=== PATIENT | female | born 1995 | race Caucasian/White ===

== ENCOUNTER 2016-10-08 22:36 | Emergency (ER) | payer SELFPAY ==
[~2016-10-08] VITALS: Ht 160 cm; Wt 52.0 kg
[2016-10-08 22:38] VITALS: BP 140/82; PULSE 97; RESP 16; TEMP 98; O2SAT 100
[2016-10-08] MEDS ORDERED: LORazepam 2 MG TAB PO ONE (23:00)
--- NOTE | 2016-10-08 23:02 | PD ---
HPI . Burning sensation in her throat Chief Complaint: Respiratory Distress Time Seen by Provider: 22:57 Travel History International Travel<30 days: No Contact w/Intl Traveler<30days: No Traveled to known affect area: No History of Present Illness HPI Patient presents saying that she's been having a burning sensation in her throat is weak. She states that it is due to cigarette smoke. She states that she has had this happen before. She states that she had medicine to take for this when she was younger. It sounds like she probably had asthma or reactive airway disease as a child. She states that cigarette smoke causes her throat burn and then she feels like her throat is closing up. PFSH Past Medical History ADHD: Yes Anxiety: Yes Influenza Vaccination: No ?: Not LMP: 10/03/16 Past Surgical History Surgical History: No Previous Surgery Social History Alcohol Use: Yes (every other day ) Tobacco Use: Yes (1 ppd ) Substance Use: No Allergies-Medications (Allergen,Severity, Reaction): Coded Allergies: No Known Allergies (Unverified , 10/08/16) Reported Meds & Prescriptions Reported Meds & Active Scripts Active No Active Prescriptions or Reported Medications Review of Systems Except as stated in HPI: all other systems reviewed are Neg HENT: Positive: Other (burning in her throat) Respiratory: No: Shortness of Breath Psychiatric: Positive: Anxiety (states that she feels like she is having a panic attack) Physical Exam Narrative GENERAL: Healthy-appearing young woman in no acute distress. SKIN: Warm and dry. HEAD: Atraumatic. Normocephalic. EYES: Pupils equal and round. ENT: No nasal bleeding or discharge. Mucous membranes pink and moist. There is no edema, erythema, tonsillar enlargement or exudate in the oropharynx. NECK: Trachea midline. No masses. Neck supple. CARDIOVASCULAR: Regular rate and rhythm. Heart sounds normal. RESPIRATORY: No accessory muscle use. Lungs are clear with full air movement throughout. GASTROINTESTINAL: Abdomen soft, non-tender, nondistended. MUSCULOSKELETAL: No obvious deformities. No edema. NEUROLOGICAL: Awake and alert. No obvious cranial nerve deficits. Motor grossly within normal limits. Normal speech. PSYCHIATRIC: Appropriate mood and affect; insight and judgment normal. Data Data Last Documented VS Vital Signs Date Time Temp Pulse Resp B/P Pulse Ox O2 Delivery O2 Flow Rate FiO2 10/08/16 22:38 98.0 97 16 140/82 100 Room Air Orders Lorazepam (Ativan) (10/08/16 23:00) [facility] Medical Decision Making Medical Screen Exam Complete: Yes Emergency Medical Condition: Yes Differential Diagnosis Differential diagnosis includes but is not limited to allergic reaction, pharyngitis, anxiety Narrative Course Patient presents complaining with irritation of her throat with cigarette smoke. This causes her to feel panicked. Her lungs are clear with good air movement throughout. He has no swelling of her oropharynx. Patient states that she is feeling better. Diagnosis Primary Impression: Anxiety Med/Other Pt SpecificInfo: Prescription(s) given Scripts Hydroxyzine HCl 50 Mg Tab50 Mg PO QID PRN (ANXIETY AND/OR INSOMNIA) #15 TAB Ref 0 Prov:Shelbi Duarte MD 10/08/16 Disposition: 01 DISCHARGE HOME Condition: Stable Shelbi Duarte MD Oct 08, 2016 23:02
[2016-10-08] MEDS ORDERED: HYDR50TA94 PO (23:49)
== END 2016-10-08 23:57 | disposition home or self-care (01) ==
LOC: NEPA 22:36
DX: F41.9 Anxiety disorder, unspecified (principal); R07.0 Pain in throat; F17.200 Nicotine dependence, unspecified, uncomplicated; Z86.59 Personal history of other mental and behavioral disorders
CPT/HCPCS: 99282